=== PATIENT | female | born 1995 | race Hispanic/Latino ===

== ENCOUNTER 2017-06-15 19:13 | Emergency (ER) | payer BC ==
[~2017-06-15] VITALS: Ht 165.1 cm; Wt 68.0 kg
[2017-06-15 21:31] LABS: BILIRUBIN,URINE NEGATIVE (NEGATIVE); CLARITY,URINE CLEAR (CLEAR); COLOR,URINE YELLOW (YELLOW); KETONES,URINE TRACE (NEGATIVE); LEUKOCYTE ESTERASE ,URINE NEGATIVE (NEGATIVE); NITRITE,URINE NEGATIVE (NEGATIVE); PROTEIN,URINE DIPSTICK NEGATIVE (NEGATIVE); URINE UROBILINOGEN 0.2 mg/dL (0.2 - 1)
[2017-06-15 21:33] LABS: PREGNANCY TEST, URINE POSITIVE (NEGATIVE)
[2017-06-15 21:45] LABS: EPITHELIAL CELLS,URINE FEW /LPF
== END 2017-06-15 23:58 | disposition home or self-care (01) ==
LOC: ER 19:13
DX: R10.33 Periumbilical pain (principal); R11.0 Nausea; Z33.1 Pregnant state, incidental
CPT/HCPCS: 81001; 81025; 87086; 99282